=== PATIENT | female | born 1970 | race Caucasian/White ===

== ENCOUNTER 2023-09-09 04:09 | Day surgery (SDC) | payer OTHER ==
[2023-08-28 10:10] VITALS: BMI 29.8
[2023-09-09] MEDS ORDERED: LIDOCAINE HCL 1%, 10 MG/ML (20ML VIAL) ONE (09:45)
[2023-09-09] MEDS ORDERED: PROPOFOL 20 ML ONE (10:36)
[2023-09-09] MEDS ORDERED: FENTANYL CITRATE/PF 50 MCG/ML VIAL ONE ×2 (10:36→12:53)
[2023-09-09] MEDS ORDERED: MIDAZOLAM HCL 2 MG/2 ML SINGLE DOSE VIAL ONE (10:36)
[2023-09-09] MEDS: ceFAZolin SODIUM 1 GM VIAL IVPB ONE (10:53)
[2023-09-09] MEDS: LIDOCAINE HCL 1%, 10 MG/ML (20ML VIAL) INF ONE ×2 (11:03)
[2023-09-09] MEDS ORDERED: oxyCODONE HCL 5 MG TABLET PO PRN (13:32)
[2023-09-09] MEDS ORDERED: ONDANSETRON 4 MG/2 ML VIAL IVPUSH PRN (13:32)
[2023-09-09] MEDS ORDERED: LACTATED RINGERS SOLUTION 1,000 ML IV SCH (13:45)
[2023-09-09 15:27] VITALS: BP 132/72; PULSE 66; RESP 20; TEMP 97
== END 2023-09-09 15:00 | disposition home or self-care (01) ==
LOC: JASU-SURG 04:09
PROVIDERS: ATTEND Surgery
PROC: 0HBT0ZZ Excision of Right Breast, Open Approach (ICD-10-PCS; principal; 2023-09-09 10:30)
PROC: 07T50ZZ Resection of Right Axillary Lymphatic, Open Approach (ICD-10-PCS; 2023-09-09 10:30)
DX: C50.911 Malignant neoplasm of unspecified site of right female breast (principal); C77.3 Secondary and unspecified malignant neoplasm of axilla and upper limb lymph nodes
CPT/HCPCS: 81025; 88307-TC; 88341-TC; 88342-TC; 94760

== ENCOUNTER 2023-10-01 04:21 | Day surgery (SDC) | payer OTHER ==
[2023-09-30 16:20] VITALS: BMI 29.8
[2023-10-01] MEDS ORDERED: ONDANSETRON 4 MG/2 ML VIAL ONE (11:52)
[2023-10-01] MEDS ORDERED: LIDOCAINE HCL/PF 2% SDV 5ML VIAL ONE (11:52)
[2023-10-01] MEDS ORDERED: DEXAMETHASONE SOD PHOSPHATE 4 MG/1 ML VIAL ONE (11:52)
[2023-10-01] MEDS ORDERED: MIDAZOLAM HCL 2 MG/2 ML SINGLE DOSE VIAL ONE (11:53)
[2023-10-01] MEDS ORDERED: PROPOFOL 40 ML ONE (11:53)
[2023-10-01] MEDS ORDERED: SEVOFLURANE 250 ML BTL ONE (12:41)
[2023-10-01] MEDS ORDERED: LIDOCAINE HCL 2% JELLY 6 ML TP ONE (12:41)
[2023-10-01] MEDS ORDERED: ONDANSETRON 4 MG/2 ML VIAL IVPUSH PRN (12:47)
[2023-10-01] MEDS ORDERED: PROMETHAZINE HCL 25 MG/1 ML VIAL IVPB PRN (12:47)
[2023-10-01] MEDS ORDERED: oxyCODONE HCL 5 MG TABLET PO PRN (12:47)
[2023-10-01] MEDS ORDERED: LACTATED RINGERS SOLUTION 1,000 ML IV SCH (13:00)
[2023-10-01] MEDS: ceFAZolin SODIUM 1 GM VIAL IVPB ONE ×2 (13:09)
[2023-10-01] MEDS: LIDOCAINE HCL 1%, 10 MG/ML (20ML VIAL) NR ONE ×2 (13:18)
[2023-10-01] MEDS ORDERED: ACETAMINOPHEN INJECTION 100 ML IVPB ONE (13:37)
[2023-10-01 15:07] VITALS: RESP 16
[2023-10-01 15:46] VITALS: BP 110/71; PULSE 76; TEMP 97.7
== END 2023-10-01 15:35 | disposition home or self-care (01) ==
LOC: JASU-SURG 04:21
PROVIDERS: ATTEND Surgery
PROC: 0HBT0ZZ Excision of Right Breast, Open Approach (ICD-10-PCS; principal; 2023-10-01 11:00)
DX: C50.911 Malignant neoplasm of unspecified site of right female breast (principal)
CPT/HCPCS: 88307-TC; 94760; J0131